=== PATIENT | female | born 1955 | race Caucasian/White ===

== ENCOUNTER → 2016-10-13 | Day surgery (SDC) | payer OTHER ==
[~2016-10-13] VITALS: Ht 157.5 cm; Wt 72.1 kg
[~2016-10-13] MED LIST: DIOVAN HCT 1601 EAC1 PO; INDERAL LA80 M1 PO
--- NOTE | 2016-10-13 13:55 | Operative Report ---
Operative/Inv Procedure Report Surgery Date: 10/13/16 Name of Procedure: Right foot hallux rigidus correction with bio Pro implant and flexor tendon transfer. Fifth metatarsal head resection right foot. Pre-Operative Diagnosis: Hallux rigidus right foot. Right fifth metatarsal deformity. Post-Operative Diagnosis: Same as above Estimated Blood Loss: scant Surgeon/Technical Sme: CLARIBEL ADRIAN DPM Anesthesia: local monitored anesthesi, block Implants: Bio Pro great toe bhumika-implant 18.5 mm Specimens: Bone right foot Tourniquet: Right ankle 250 mmHg for 57 minutes Complications: None apparent Condition: Stable Operative Indication: Right foot deformity with arthritis Operative/Procedure Note Note: Patient is a 61-year-old female with hallux valgus rigidus deformity right foot and fifth metatarsal tailor's bunion deformity. After discussion of risks, benefits, and alternatives, informed consent was obtained for planned staged operative treatment of her right foot. Identified risks include possibility of pain, scarring, swelling, numbness, bleeding, delayed healing, recurrence, and need for further surgery. After identifying the correct operative site the patient was transported to the operating room and placed on the table in supine position. A well-padded tourniquet was applied to the right ankle. Prophylactic intravenous antibiotics were provided. Following IV sedation local anesthesia was obtained about the right foot utilizing 20 mL's of 0.5% Marcaine plain. The right foot was then scrubbed prepped and draped in the usual aseptic fashion. The foot was then exsanguinated and the cuff inflated to 250 mmHg. Attention was directed to the right first metatarsophalangeal joint where an incision was fashioned medial and parallel to the tendon of the extensor hallucis longus. This incision was deepened through subcutaneous tissues utilizing blunt and sharp dissection technique. Care was taken at all times not to hazard any vital neurovascular structures. All bleeders were ligated and cauterized as necessary. At this time the first metatarsophalangeal joint was encountered and incised along its dorsal medial aspect a linear orientation. Capsular and periosteal structures were reflected medially and laterally thus exposing the first metatarsophalangeal joint at the operative site. Extensive degenerative changes were noted within the joint space including full thickness cartilaginous erosion of the metatarsal head and hypertrophic bone formation at the joint margins. Sagittal saw was utilized to resect hypertrophic bone from the dorsal medial aspects of the first metatarsal head as well as to transect the base of the proximal phalanx of the hallux. Resected bone was freed and passed from the operative field for pathologic evaluation. Drillhole was created in the base the proximal phalanx of the hallux and the long flexor tendon was transferred to the site utilizing 2-0 Vicryl suture material. Surgical site was copiously irrigated with sterile normal saline and following implant sizing, a size medium small 18.5 mm bio Pro bhumika-implant was inserted and the base the proximal phalanx of the hallux. Alignment and range of motion were noted be satisfactory at the site and capsular and periosteal structures were reapproximated utilizing 2-0 Vicryl suture material, followed by subcuticular closure with 4-0 Vicryl suture material, and skin closure with 4-0 nylon in a horizontal mattress technique. Attention was then directed to the fifth metatarsophalangeal joint dorsal lateral aspect where a curvilinear incision was fashioned and deepened through subcutaneous tissues utilizing blunt and sharp dissection technique. Fifth MPJ capsule was incised and reflected medially and laterally thus exposing the head of the fifth metatarsal at the operative site. Fifth metatarsal head was noted to be hypertrophic in nature with associated degenerative changes of the articular cartilage. Sagittal saw was utilized to incise and transect the fifth metatarsal head in a triplanar fashion. Resected bone was freed and passed from the operative field. Surgical site was irrigated with sterile normal saline. Capsular structures were reapproximated with 3-0 Vicryl suture material. Skin closure was achieved with 4-0 nylon suture material in a horizontal mattress technique. Surgical sites were then infiltrated with a total 4 mg dexamethasone phosphate followed by application of Xeroform gauze gauze 4 x 4's and a roll bandage to the foot. A prompt hyperemic response was noted to all digits upon release the tourniquet. Subsequently a well-padded plaster slipper cast was applied to the right foot with Coban wrap as an outer layer. Patient tolerated the procedure and anesthesia well and was transported to recovery in good condition. Findings: Degenerative arthritis right foot Discharge Disposition: Same Day Admissions
== END ==
LOC: STS 05:28
DX: M20.21 Hallux rigidus, right foot (principal); M21.621 Bunionette of right foot; M19.071 Primary osteoarthritis, right ankle and foot; M20.11 Hallux valgus (acquired), right foot; I10 Essential (primary) hypertension
CPT/HCPCS: 88304; C1776; J0690; J2250